=== PATIENT | male | born 1945 ===

== ENCOUNTER 2022-01-18 07:30 | Inpatient (IN) | payer OTHER ==
[~2022-01-18] VITALS: Ht 152.4 cm; Wt 124.7 kg
[2022-01-18] MEDS ORDERED: ZESTRIL40 M1 PO (09:01)
[2022-01-18] MEDS ORDERED: LIPIT PO (09:02)
[2022-01-23] MEDS ORDERED: ATORVASTATIN CA10 MG PO (08:58)
[2022-01-25] MEDS ORDERED: PERCOCET 5-3251 EACH PO (19:20)
[2022-01-25] MEDS ORDERED: ELIQUIS2.5 MG PO (19:20)
[2022-01-25] MEDS ORDERED: DUI500 PO (19:20)
== END 2022-01-25 22:49 | disposition home or self-care (01) | DRG 470 ==
LOC: O/R 01-23 06:00 → SURH 01-23 06:00
PROVIDERS: ADMIT Orthopaedic Surgery; ATTEND Orthopaedic Surgery
PROC: 0SRC0J9 Replacement of Right Knee Joint with Synthetic Substitute, Cemented, Open Approach (ICD-10-PCS; principal; 2022-01-23 13:30)
DX: M17.11 Unilateral primary osteoarthritis, right knee (principal); D62 Acute posthemorrhagic anemia; S83.011A Lateral subluxation of right patella, initial encounter; M22.11 Recurrent subluxation of patella, right knee; I10 Essential (primary) hypertension; E66.9 Obesity, unspecified